=== PATIENT | female | born 1970 | race Caucasian/White ===

== ENCOUNTER 2017-02-08 07:38 | Emergency (ER) | payer BC ==
[~2017-02-08] VITALS: Ht 154.9 cm; Wt 56.7 kg
[2017-02-08 07:53] VITALS: BP_SYST 140
[2017-02-08] MEDS ORDERED: HYDROmorphone 1 MG INJ. 1 MG/ML AMPUL IM ONE (08:45)
[2017-02-08] MEDS ORDERED: ONDANSETRON 4 MG ODT TAB PO ONE (08:45)
[2017-02-08 09:38] VITALS: BP_SYST 132
== END 2017-02-08 09:38 | disposition home or self-care (01) ==
LOC: SED 07:38
DX: B02.9 Zoster without complications (principal); G43.909 Migraine, unspecified, not intractable, without status migrainosus; Z85.828 Personal history of other malignant neoplasm of skin; Z88.6 Allergy status to analgesic agent
CPT/HCPCS: 96372; 99283; J1170; Q0162

== ENCOUNTER 2018-06-15 10:50 | Emergency (ER) | payer BC ==
[~2018-06-15] VITALS: Ht 157.5 cm; Wt 59.4 kg
--- NOTE | 2018-06-15 10:59 | NUR ---
Pt wheeled to bed 8
[2018-06-15 11:01] VITALS: BP_SYST 149
--- NOTE | 2018-06-15 11:12 | NUR ---
PATIENT ARRIVED TO THE ED VIA PRIVATE AUTO, ACCOMPANIED BY . PATIENT SITTING UP ON BED. A&Ox4. RESPIRATIONS EVEN AND UNLABORED. SPEAKING FULL SENTENCES. DENIES OF ANY CHEST PAIN, HEADACHE, NUMBNESS, OR TINGLING. PATIENT WITH C/O DIZZINESS AND NAUSEA WHICH WORSENS UPON STANDING AND HEAD MOVEMENT. DIZZINESS SUBSIDES WHEN AT REST AND WHEN SHE KEEPS HER HEAD STILL. PATIENT HAS HAD A COUGH x3 WEEKS. NO FEVERS. REST, RELAXATION, AND SLOW DEEP BREATHING ENCOURAGED. WILL CONTINUE TO MONITOR.
--- NOTE | 2018-06-15 11:20 | NUR ---
DR. VIVAR AT BEDSIDE AND EXAMINING PATIENT.
[2018-06-15] MEDS ORDERED: ONDANSETRON HCL 4 MG/2 ML VIAL IVP ONE (11:30)
[2018-06-15] MEDS ORDERED: DIPHENHYDRAMINE INJ 50 MG/ML VIAL IVP ONE (11:30)
[2018-06-15] MEDS ORDERED: MECLIZINE HCL 25 MG TABLET (ANITVERT) PO ONE (11:30)
[2018-06-15] MEDS ORDERED: LORazepam 2 MG/ML VIAL (FOR ER USE) IVP ONE (11:30)
[2018-06-15 11:53] LABS: BASOPHILS # (AUTO) 0.1 K/uL (0.0-0.2); BASOPHILS % (AUTO) 1.6 % (0.0-2.0); EOSINOPHILS # (AUTO) 0.3 K/uL (0.0-0.4); EOSINOPHILS % (AUTO) 4.8 % (0.0-4.0); HEMATOCRIT 47.4 % (36-48); HEMOGLOBIN 15.4 g/dL (12.0-16.0); LYMPHOCYTES # (AUTO) 1.5 K/uL (1.0-5.5); MEAN CORPUSCULAR HEMOGLOBIN 29 pg (27-31); MEAN CORPUSCULAR HGB CONC 33 % (32-36); MEAN CORPUSCULAR VOLUME 89 fL (79.0-98.0); MONOCYTES # (AUTO) 0.3 K/uL (0.0-1.0); MONOCYTES % (AUTO) 4.7 % (1.7-9.3); NEUTROPHILS % (AUTO) 63.9 % (40.0-70.0); PLATELET COUNT (AUTO) 247 K/uL (130-430); RED BLOOD CELL COUNT(AUTO) 5.32 MIL/uL (4.2-6.2); WHITE BLOOD COUNT (AUTO) 6.2 K/uL (4.8-10.8)
[2018-06-15 11:58] LABS: BILIRUBIN,URINE NEGATIVE (NEGATIVE); CLARITY/URINE CLEAR (CLEAR); COLOR,URINE YELLOW (YELLOW); GLUCOSE,URINE NEGATIVE (NEGATIVE); KETONES,URINE NEGATIVE (NEGATIVE); LEUKOCYTE ESTERASE ,URINE NEGATIVE (NEGATIVE); NITRITE, URINE NEGATIVE (NEGATIVE); PROTEIN URINE NEGATIVE (NEGATIVE); UROBILINOGEN,URINE 0.2 (0.2-1.0)
--- NOTE | 2018-06-15 11:58 | NUR ---
VERBAL CONSENT RECEIVED FROM PATIENT. ECG DONE AND GIVEN TO DR. REID FOR REVIEW.
[2018-06-15 11:59] LABS: CALCIUM 9.4 mg/dL (8.4-11.0); CREATININE 0.59 mg/dL (0.55-1.30); POTASSIUM 4.1 mmol/L (3.5-5.1)
[2018-06-15 12:01] LABS: BLOOD, URINE TRACE (NEGATIVE)
[2018-06-15 12:06] LABS: PROTHROMBIN TIME 9.9 SECS (9.5-12.5)
[2018-06-15 12:10] LABS: BARBITURATE, URINE NEGATIVE (NEG <=200); BENZODIAZEPINE, URINE NEGATIVE (NEG <=150); CANNABINOID, URINE NEGATIVE (NEG <=50); COCAINE, URINE NEGATIVE (NEG <=150); METHAMPHETAMINES SCREEN,URINE NEGATIVE (NEG <=500); OPIATE, URINE NEGATIVE (NEG <=100); PHENCYCLIDINE SCREEN,URINE NEGATIVE (NEG <=25); UR TRICYCLIC ANTIDEPRESSANTS NEGATIVE (NEG <=300); URINE AMPHETAMINE NEGATIVE (NEG <=500); URINE METHADONE NEGATIVE (NEG <=200); URINE OXYCODONE SCREEN NEGATIVE (NEG <=100); URINE PROPOXYPHENE SCREEN NEGATIVE (NEG <=300)
--- NOTE | 2018-06-15 12:13 | NUR ---
PATIENT REFUSED BENADRYL AND ATIVAN AT THIS TIME. DR. REID MADE AWARE. NO NEW ORDERS GIVEN AT THIS TIME. PATIENT SITTING UP ON BED. RESTING COMFORTABLY. NO ACUTE DISTRESS. SIDE RAILS UP x2. FAMILY AT BEDSIDE.
[2018-06-15 12:15] LABS: ALBUMIN 3.9 g/dL (3.4-4.8); FREE T4 (FREE THYROXINE) 0.8 ng/dL (0.6-1.6); TOTAL BILIRUBIN 0.7 mg/dL (0.0-1.0)
[2018-06-15 12:16] LABS: BACTERIA,URINE RARE /HPF (None Seen); MUCUS,URINE 1+ /LPF (None Seen); RBC,URINE 0-3 /HPF (0-3); WBC,URINE 0-3 /HPF (0-3)
--- NOTE | 2018-06-15 12:43 | NUR ---
ER Dr. Staples at bedside updating patient on results.
--- NOTE | 2018-06-15 12:52 | NUR ---
Pt states relief of dizziness. Resting comfortably in bed with no signs of distress. at bedside. Will continue to monitor.
[2018-06-15 13:00] VITALS: BP_SYST 129
--- NOTE | 2018-06-15 13:00 | NUR ---
Patient given written and verbal discharge instructions and verbalizes understanding. ER MD discussed with patient the results and treatment provided. Patient in stable condition. ID arm band removed. IV catheter removed intact and dressing applied, no active bleeding. Rx of ANTIVERT given. Patient educated on pain management and to follow up with PMD. Pain Scale 0/10. Opportunity for questions provided and answered. Medication side effect fact sheet provided.
== END 2018-06-15 13:00 | disposition home or self-care (01) ==
LOC: SED 10:50
DX: R42 Dizziness and giddiness (principal); H53.8 Other visual disturbances; R05 Cough; R03.0 Elevated blood-pressure reading, without diagnosis of hypertension; J45.909 Unspecified asthma, uncomplicated; G43.909 Migraine, unspecified, not intractable, without status migrainosus; Z85.828 Personal history of other malignant neoplasm of skin; Z88.2 Allergy status to sulfonamides; Z88.6 Allergy status to analgesic agent
CPT/HCPCS: 36415; 71045; 80053; 80307; 81000; 84439; 84484; 85025; 85610; 87040; 93005; 96374; 99284; G0482; J1200; J2405; J8597